=== PATIENT | female | born 1980 | race Caucasian/White ===

== ENCOUNTER 2019-10-09 21:22 | Emergency (ER) | payer OTHER ==
[2019-10-09] MEDS ORDERED: Ondansetron 4 MG/2 ML SDV IVPUSH ONE (23:28)
[2019-10-09] MEDS ORDERED: Sodium Chloride 0.9% 1,000 ML IV SCH (23:30)
--- NOTE | 2019-10-09 23:33 | EDM.PDOC ---
ED HPI GENERAL MEDICAL PROBLEM - General Chief Complaint: General Stated Complaint: POSS DEHYDRATION/HEAT STROKE/RAN 50 MILES Time Seen by Provider: 10/09/19 23:22 Source of Information: Reports: Patient History Limitations: Reports: No Limitations - History of Present Illness INITIAL COMMENTS - FREE TEXT/NARRATIVE: This is a 39-year-old female. She decided to run the [place] race today ate breakfast at 5 AM started running by 6. About 10 miles into it she was not able to keep any fluids or electrolytes down. She continued to run to 24 miles continued to have nausea and vomiting finally went to 47 miles and still was unable to keep anything down and so she stopped. She complains of nausea and vomiting still and a lot of muscle cramps. She comes to the ER for evaluation. 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 Says it was just too hot and humid out there for her to be able to tolerate it. She also states that when she gets dehydrated she frequently ends up having urinary tract infection and is asking for antibiotics already for the urinary tract infection. I indicated that once we got the urine from her since she needs to pee before she leaves we will determine if she needs an antibiotic. Generalized Pain Score (Numeric/FACES): 8 - Related Data Allergies Allergy/AdvReac Type Severity Reaction Status Date / Time No Known Allergies Allergy Verified 10/09/19 22:51 Home Meds: Home Meds . [No Known Home Meds] 10/09/19 [History] Past Medical History Genitourinary History: Reports: UTI, Recurrent - Past Surgical History HEENT Surgical History: Reports: Adenoidectomy, LASIK, Naso-Sinus Surgery, Tonsillectomy Social & Family History - Tobacco Use Smoking Status *Q: Never Smoker - Caffeine Use Caffeine Use: Reports: Coffee, Tea - Recreational Drug Use Recreational Drug Use: No ED ROS GENERAL - Review of Systems Review Of Systems: See Below Constitutional: Denies: Fever, Chills HEENT: Reports: No Symptoms Respiratory: Reports: No Symptoms Cardiovascular: Reports: No Symptoms Endocrine: Reports: No Symptoms GI/Abdominal: Reports: Other (As per HPI) : Reports: No Symptoms Musculoskeletal: Reports: Other (As per HPI) Skin: Reports: No Symptoms Neurological: Reports: No Symptoms Psychiatric: Reports: No Symptoms Hematologic/Lymphatic: Reports: No Symptoms ED EXAM, GENERAL - Physical Exam Exam: See Below Exam Limited By: No Limitations General Appearance: Alert, WD/WN, No Apparent Distress Eye Exam: Bilateral Eye: Normal Inspection Ears: Normal External Exam Nose: Normal Inspection Throat/Mouth: Normal Inspection, Normal Lips, Normal Voice, No Airway Compromise Head: Normocephalic Neck: Supple Respiratory/Chest: No Respiratory Distress, Lungs Clear, Normal Breath Sounds Cardiovascular: Regular Rate, Rhythm, No Murmur GI/Abdominal: Soft, Non-Tender, Other (She does complain of some abdominal cramps periodically) Back Exam: Full Range of Motion Extremities: Normal Inspection, Normal Range of Motion, Other (She also complains of cramping in her legs) Neurological: Alert, Oriented Psychiatric: Normal Affect, Normal Mood Skin Exam: Warm, Dry Course - Vital Signs Last Recorded V/S: Last Vital Signs Temp 98.8 F 10/09/19 22:44 Pulse 95 10/09/19 22:44 Resp 20 10/09/19 22:44 BP 143/86 H 10/09/19 22:44 Pulse Ox 100 10/09/19 22:44 - Orders/Labs/Meds Orders: Active Orders 24 hr Category Date Time Status Sodium Chloride 0.9% [Normal Saline] 1,000 ml Med 10/09/19 23:30 Active IV ASDIRECTED Medication Orders Sodium Chloride (Normal Saline) 1,000 mls @ 1,000 mls/hr IV ASDIRECTED BLAYNE Last Admin: 10/09/19 23:37 Dose: 1,000 mls/hr Documented by: LILIANA Labs: Laboratory Tests 10/09/19 10/10/19 10/10/19 Range/Units 23:10 00:12 02:50 Sodium 134 L 135 L (136-145) mEq/L Potassium 4.9 4.7 (3.5-5.1) mEq/L Chloride 96 L 101 (98-107) mEq/L Carbon Dioxide 26 25 (21-32) mEq/L Anion Gap 16.9 H 13.7 (5-15) BUN 48 H 42 H (7-18) mg/dL Creatinine 2.4 H 1.8 H (0.55-1.02) mg/dL Est Cr Clr Drug Dosing 31.21 41.61 mL/min Estimated GFR (MDRD) 23 32 (>60) mL/min BUN/Creatinine Ratio 20.0 H 23.3 H (14-18) Glucose 125 H 107 H (74-106) mg/dL Calcium 10.0 8.5 D (8.5-10.1) mg/dL Total Bilirubin 0.4 (0.2-1.0) mg/dL AST 39 H (15-37) U/L ALT 33 (14-59) U/L Alkaline Phosphatase 77 (46-116) U/L Creatine Kinase 788 H 627 H (26-192) U/L Total Protein 8.2 (6.4-8.2) g/dl Albumin 4.4 (3.4-5.0) g/dl Globulin 3.8 gm/dL Albumin/Globulin Ratio 1.2 (1-2) Urine Color Light yellow (Yellow) Urine Appearance Clear (Clear) Urine pH 5.5 (5.0-8.0) Ur Specific [place] 1.020 (1.005-1.030) Urine Protein 1+ H (Negative) Urine Glucose (UA) Negative (Negative) Urine Ketones Trace H (Negative) Urine Occult Blood 3+ H (Negative) Urine Nitrite Negative (Negative) Urine Bilirubin Negative (Negative) Urine Urobilinogen 0.2 (0.2-1.0) Ur Leukocyte Esterase Negative (Negative) U Hyaline Cast (Auto) 5-10 H (0-5) /lpf Urine RBC 20-30 H (0-5) /hpf Urine WBC 0-5 (0-5) /hpf Ur Squamous Epith Cells 0-5 (0-5) /hpf Urine Bacteria Moderate H (FEW) /hpf Fine Granular Casts 0-5 (0-5) /lpf Broad Casts 0-5 (0-5) /hpf Urine Mucus Moderate H (FEW) /hpf Meds: Medications Generic Name Dose Route Start Last Admin Trade Name Freq PRN Reason Stop Dose Admin Sodium Chloride 1,000 mls @ 1,000 mls/hr 10/09/19 23:30 10/09/19 23:37 Normal Saline IV 1,000 mls/hr ASDIRECTED BLAYNE Administration Discontinued Medications Generic Name Dose Route Start Last Admin Trade Name Freq PRN Reason Stop Dose Admin Lactated Ringer's 1,000 mls @ 999 mls/hr 10/10/19 00:32 10/10/19 01:08 Ringers, Lactated IV 10/10/19 01:32 999 mls/hr .BOLUS ONE Administration Lactated Ringer's 1,000 mls @ 999 mls/hr 10/10/19 01:31 10/10/19 01:47 Ringers, Lactated IV 10/10/19 02:31 999 mls/hr .BOLUS ONE Administration Ceftriaxone Sodium 1 gm/ 100 mls @ 200 mls/hr 10/10/19 02:32 10/10/19 03:00 Sodium Chloride IV 10/10/19 03:01 200 mls/hr ONETIME ONE Administration Ondansetron HCl 4 mg 10/09/19 23:28 10/09/19 23:37 Zofran IVPUSH 10/09/19 23:29 4 mg ONETIME ONE Administration - Re-Assessments/Exams Free Text/Narrative Re-Assessment/Exam: 10/10/19 03:35 To the patient regarding her creatinine and CK values. She is obviously getting better the creatinine went from 2.4 to 1.8, the CK went from 788 to 627. She is feeling much better though she still feels somewhat weak. She still has a little bit of nausea only when she gets up and tries to move around. Overall she says she is feeling much better. I encouraged her to stick to a lot of liquids the next 24 hours slowly increase her foods and stick to easy to digest foods first and Gatorade for getting calories in. Departure - Departure Time of Disposition: 03:36 Disposition: Home, Self-Care 01 Clinical Impression: Dehydration after exertion, Elevated serum creatinine, Elevated creatine kinase Heat exhaustion Qualifiers: Encounter type: initial encounter Qualified Code(s): T67.5XXA - Heat exhaustion, unspecified, initial encounter - Discharge Information *PRESCRIPTION DRUG MONITORING PROGRAM REVIEWED*: Not Applicable *COPY OF PRESCRIPTION DRUG MONITORING REPORT IN PATIENT RHIANNA: Not Applicable Instructions: Heat Exhaustion, Rehydration, Adult Referrals: PCP,Not In Area [Primary Care Provider] - Forms: ED Department Discharge Additional Instructions: Continue to drink lots of fluids and Gatorade to restore some calories, stick to easy to digest foods over the next 24 hours avoid meat and vegetables until your stomach feels able to handle it, stay out of the sun for the next 24 hours and no strenuous activity for the next 24 hours, sleep and rest as much as possible, return to the ER if needed Sepsis Event Note (ED) - Evaluation Sepsis Screening Result: No Definite Risk - Focused Exam Vital Signs: Vital Signs Temp Pulse Resp BP Pulse Ox 10/09/19 22:44 98.8 F 95 20 143/86 H 100 - My Orders Last 24 Hours: My Active Orders 10/09/19 23:30 Sodium Chloride 0.9% [Normal Saline] 1,000 ml IV ASDIRECTED - Assessment/Plan Last 24 Hours: My Active Orders 10/09/19 23:30 Sodium Chloride 0.9% [Normal Saline] 1,000 ml IV ASDIRECTED
[2019-10-10] MEDS ORDERED: Lactated Ringers 1,000 ML IV ONE ×2 (00:32→01:31)
[2019-10-10] MEDS ORDERED: cefTRIAXone 1 GM in Sodium Chloride 0.9% 100 ML IV ONE (02:32)
== END 2019-10-10 03:47 | disposition home or self-care (01) ==
LOC: JD.ED 21:22
DX: T67.5XXA Heat exhaustion, unspecified, initial encounter (principal); E86.0 Dehydration; R74.8 Abnormal levels of other serum enzymes; R25.2 Cramp and spasm
CPT/HCPCS: 36415; 80048; 80053; 81001; 82550; 96361; 96365; 96375; 99284; J0696; J2405; J7030; J7050; J7120